=== PATIENT | male | born 1960 | race Caucasian/White ===

== ENCOUNTER 2016-05-22 23:13 | Emergency (ER) | payer OTHER ==
--- NOTE | ~2016-05-22 | EKG ---
PATIENT: LAURA GIBBONS UNIT #: [id number] Ventricular Rate: 91 BPM Atrial Rate: 91 BPM P-R Interval: 144 ms QRS Duration: 102 ms Q-T Interval: 382 ms QTC Calculation(Bezet): 469 ms P Hadley: 80 degrees Calculated R Hadley: 38 degrees Calculated T Hadley: 66 degrees Diagnosis Line: Normal sinus rhythm Diagnosis Line: Possible Left atrial enlargement Diagnosis Line: Borderline ECG Diagnosis Line: No previous ECGs available Diagnosis Line: Confirmed by FRANSISCA LOCO MD ([id number]) on 05/24/2016 Diagnosis Line: 5:27:18 AM INTERPRETING MD: CLAUDY MCGRAW
--- NOTE | ~2016-05-22 | CR72 ---
[facility] A Service of [facility] & [facility] RADIOLOGY TEXT RESULTS PATIENT: LAURA GIBBONS LOCATION: [facility] : 64 UNIT #: [id number] AGE: [address]: Fuentes Gregg MD SEX: M ORDER DR: [id number] [facility] [address] [place], [place] [address] [id number] MR#: [id number] Acc #: [id number] NAME: LAURA GIBBONS : 1960 SEX: M STUDY DATE/TIME: 05/22/2016 23:28 UNIT: [facility] ROOM: STUDY DESCRIPTION: CR Chest Single View Portable Attending Physician: Fuentes Gregg M.D. Ordering Physician: Fuentes Gregg M.D. Primary Care Physician: [facility], [facility]. MEDICAL IMAGING REPORT This report is preliminary unless electronic signature is present EXAM Portable chest INDICATION Weakness and shortness of air for 1 day. COMPARISON 06/23/2015 FINDINGS A portable view of the chest was obtained. The heart size and vascularity are normal and the lungs are clear. The bones are unremarkable. IMPRESSION No active disease. Dictated by... Roberto Carlos Banuelos M.D. THIS IS AN ELECTRONICALLY VERIFIED REPORT Roberto Carlos Banuelos M.D. at 05/23/2016 1:24 PM [place] TD: 05/23/2016 08:52 JOB #: [id number] MEDICAL IMAGING REPORT Page 1 of 1 COPY
[~2016-05-22 23:13] MED LIST: ACETAMINOPHEN650 M1 PO; ACULAR10 ML OS; ANTIVERT PO; BACTRIM DS TABL1 TA1 PO; CIPRODEX OTIC7.5 ML OD; CLEOCIN HCL300 M1 PO; CLEOCIN PO; FLEXERIL PO; HYDROCHLOROTHIA25 MG PO; IBUPROFEN PO; LEVAQUIN750 M1 PO; LORTAB 7.5-5001 TAB PO; NAPROSYN500 MG PO; NICOTINE TRANSD21 MG EXT; NO MEDICATIONS; POLYTRIM EYE DR10 ML OP; ULTRAM PO; VICODIN 5/500 T1 TAB PO
[2016-05-22 23:56] LABS: BASOPHIL% 0.1 % (0-2.5); EOSINOPHIL% 0.1 % (0.0-7.0); HEMATOCRIT 42.9 % (38.0-50.0); LYMPHOCYTE# 1.6 X10e3 (1.0-3.5); LYMPHOCYTE% 6.1 % (17.0-45.0); MEAN CELL VOLUME 91.6 FL (83-96); MEAN CORPUSCULAR HGB CONC 32.7 g/dL (30-36); MEAN PLATELET VOLUME 9.5 FL (6.5-11.5); MONOCYTE# 1.8 X10e3 (0-1.0); NEUTROPHIL% 86.7 % (40-75); RED BLOOD COUNT 4.68 X10e (3.90-5.60); RED CELL DISTRIBUTION WIDTH 14.3 % (11.0-15.5); WHITE BLOOD COUNT 25.3 X10e3 (4.0-10.5)
[2016-05-23 00:07] LABS: POC - CKMB <1.0 ng/mL (0.0-7.9); POC - TROPONIN <0.05 ng/mL (<=0.05)
[2016-05-23 00:10] LABS: DIFF IND YES; PLATELET COUNT 87 X10e3 (140-420)
[2016-05-23 00:13] LABS: PLATELET ESTIMATE DECREASED (NORMAL); RBC NORMAL YES; SMUDGE CELLS 5 /100
[2016-05-23 00:18] LABS: ALBUMIN SERUM 3.3 g/dL (3.5-5.0); BILIRUBIN, DIRECT 0.4 mg/dL (0.0-0.2); BILIRUBIN,INDIRECT 0.8 mg/dL (0.0-0.9); BILIRUBIN,TOTAL 1.2 mg/dL (0.2-2.0); BUN/CREATININE RATIO 21.81; CALCIUM SERUM 8.6 mg/dL (8.4-10.2); CREATININE SERUM 1.1 mg/dL (0.6-1.4); GLOM FILT RATE Estimated 76.3 mL/min (>60); POTASSIUM 3.5 mmol/L (3.5-5.1); PROTEIN TOTAL SERUM 6.6 g/dL (6.0-8.3)
[2016-05-23 01:31] LABS: URINE SOURCE CLEAN CATCH
[2016-05-23 01:36] LABS: URINE APPEARANCE CLEAR; URINE BILIRUBIN NEG (NEG); URINE BLOOD NEG (NEG); URINE COLOR YELLOW; URINE GLUCOSE NEG (NEG); URINE KETONE NEG (NEG); URINE LEUKOCYTE ESTERASE NEG (NEG); URINE NITRATE NEG (NEG); URINE PH 5.5 (5-8); URINE PROTEIN NEG (NEG); URINE SPECIFIC GRAVITY 1.012 (1.003-1.035)
[2016-05-23 01:40] LABS: CULTURE INDICATED? NO
[2016-05-23 01:46] LABS: AMPHETAMINE POS (NEG); BARBITURATES NEG (NEG); BENZODIAZEPINES NEG (NEG); COCAINE NEG (NEG); MARIJUANA NEG (NEG); OPIATES NEG (NEG); TRICYCLIC ANTIDEPRESSANTS NEG (NEG); U METHADONE NEG (NEG)
[2016-05-23 04:34] LABS: POC - CKMB <1.0 ng/mL (0.0-7.9); POC - TROPONIN <0.05 ng/mL (<=0.05)
[2016-05-23 04:44] LABS: BASOPHIL% 0.2 % (0-2.5); EOSINOPHIL% 0.2 % (0.0-7.0); HEMATOCRIT 40.1 % (38.0-50.0); HEMOGLOBIN 12.9 gm/dL (13.0-16.0); LYMPHOCYTE# 2.3 X10e3 (1.0-3.5); LYMPHOCYTE% 9.7 % (17.0-45.0); MEAN CELL VOLUME 92.8 FL (83-96); MEAN CORPUSCULAR HEMOGLOBIN 29.7 PG (28-34); MEAN CORPUSCULAR HGB CONC 32.1 g/dL (30-36); MEAN PLATELET VOLUME 9.4 FL (6.5-11.5); MONOCYTE# 1.5 X10e3 (0-1.0); MONOCYTE% 6.3 % (3.0-12.0); NEUTROPHIL# 19.7 X10e3 (1.5-7.1); NEUTROPHIL% 83.6 % (40-75); PLATELET COUNT 83 X10e3 (140-420); RED BLOOD COUNT 4.32 X10e (3.90-5.60); RED CELL DISTRIBUTION WIDTH 14.3 % (11.0-15.5); WHITE BLOOD COUNT 23.5 X10e3 (4.0-10.5)
[2016-05-23 04:45] LABS: DIFF IND NO
== END 2016-05-23 05:57 | disposition home or self-care (01) ==
LOC: CED 23:13
PROVIDERS: Emergency Medicine
DX: E86.0 Dehydration (principal); F15.10 Other stimulant abuse, uncomplicated; I10 Essential (primary) hypertension; F17.200 Nicotine dependence, unspecified, uncomplicated; Z90.49 Acquired absence of other specified parts of digestive tract; Z88.0 Allergy status to penicillin
CPT/HCPCS: 36415; 71010; 80048; 80076; 80307; 81003; 82550; 82553; 84484; 85025; 93005; 96361; 96374; 99284; 99291; J2405